=== PATIENT | male | born 1985 | race Caucasian/White ===

== ENCOUNTER 2018-10-09 19:17 | Emergency (ER) | payer SELFPAY ==
[2018-10-09] MEDS ORDERED: ONDANSETRON 4 MG/2 ML VIAL ONE (20:21)
[2018-10-09 20:37] LABS: Absolute Lymphocytes (CBC) 0.9 K/uL (0.7-4.9); Absolute Monocytes 1.1 K/uL (0.1-1.3); Absolute Neutrophil 15.1 K/uL (1.8-8.0); Basophils % 0.1 % (0-1.3); Eosinophils % 0.8 % (0-4.4); Hematocrit 52.4 % (39.6-49.0); Lymphocytes % 5.1 % (15.3-44.8); MPV 9.5 fL (7.6-11.3); Monocytes % 6.2 % (3.3-12.3); RBC Red Blood Cell Count 5.68 M/uL (4.33-5.43)
[2018-10-09 20:51] LABS: Albumin 4.3 g/dL (3.4-5.0); Bilirubin Direct 0.1 mg/dL (0-0.2); Bilirubin Total 0.6 mg/dL (0.2-1.0); Potassium 4.8 mmol/L (3.5-5.1); Protein, Total 8.5 g/dL (6.4-8.2)
[2018-10-09] MEDS ORDERED: NA CHLORIDE 0.9% 1,000 ML ONE (20:56)
[2018-10-09 21:16] LABS: Platelet Estimate ADEQ; Platelets, Giant FEW; Urine White Blood Cell Casts OK
[2018-10-09 21:17] LABS: Blood Morphology Comment NOT SEEN (NOT SEEN)
[2018-10-09 21:25] LABS: Urine Blood NEGATIVE (NEG); Urine Glucose NEGATIVE (NEG); Urine Protein 1+ (NEG); Urine Specific Gravity >1.030 (1.005-1.030)
--- NOTE | 2018-10-09 21:30 | ER ---
Nurse's Notes [facility] Name: Santo Shoemaker Age: 33 yrs Sex: Male : 1985 Arrival Date: 10/09/2018 Time: 19:20 Bed 30 Private MD: Diagnosis: Acute gastroenteropathy due to other small round viruses;Dehydration Presentation: 10/09 19:35 Presenting complaint: Patient states: "I'm having a hard time breathing, when it first aj1 started I was having stomach pains. I had bubble gut, it went from diarrhea to vomiting" Patient reports that his symptoms started this morning. Transition of care: patient was not received from another setting of care. Onset of symptoms was October 09, 2018. Risk Assessment: Do you want to hurt yourself or someone else? Patient reports no desire to harm self or others. Initial Sepsis Screen: Does the patient meet any 2 criteria? No. Patient's initial sepsis screen is negative. Does the patient have a suspected source of infection? Yes: Acute abdominal pain. Care prior to arrival: None. 19:35 Method Of Arrival: Wheelchair aj1 19:35 Acuity: LANDON 3 aj1 Triage Assessment: 19:39 General: Appears in no apparent distress. uncomfortable, Behavior is calm, cooperative, aj1 appropriate for age. Pain: Complains of pain in left lower quadrant Pain currently is 7 out of 10 on a pain scale. Neuro: Level of Consciousness is awake, alert, obeys commands. Cardiovascular: Patient's skin is warm and dry. Respiratory: Airway is patent Respiratory effort is even, unlabored, Respiratory pattern is regular, symmetrical. GI: Reports diarrhea, nausea, vomiting. Historical: - Allergies: 19:39 Amoxicillin; aj1 19:39 Ceclor; aj1 - Home Meds: 19:39 None [Active]; aj1 - PMHx: 19:39 None; aj1 - PSHx: 19:39 None; aj1 - Immunization history:: Flu vaccine is not up to date. - Social history:: Smoking status: Patient/guardian denies using tobacco. - Ebola Screening: : Patient denies travel to an Ebola-affected area in the 21 days before illness onset. Screenin:14 Abuse screen: Denies threats or abuse. Denies injuries from another. Nutritional mg2 screening: No deficits noted. Tuberculosis screening: No symptoms or risk factors identified. Fall Risk IV access (20 points). Assessment: 20:04 General: Appears in no apparent distress. comfortable, Behavior is calm, cooperative. mg2 Pain: Complains of pain in abdomen and left lower quadrant Pain does not radiate. Pain currently is 8 out of 10 on a pain scale. Quality of pain is described as aching, Pain began gradually, 1 day ago. Is intermittent. Neuro: Level of Consciousness is awake, alert, obeys commands, Oriented to person, place, time, situation. Cardiovascular: Capillary refill < 3 seconds Patient's skin is warm and dry. Respiratory: Airway is patent Respiratory effort is even, unlabored, Respiratory pattern is regular, symmetrical. GI: Abdomen is flat, non-distended, Reports lower abdominal pain, diarrhea, vomiting. : Urine is clear. EENT: No deficits noted. Derm: Skin is intact, is healthy with good turgor, Skin is pink, warm \\T\\ dry. normal. Musculoskeletal: No signs and/or symptoms reported regarding the musculoskeletal system. 20:56 Reassessment: Patient appears in no apparent distress at this time. mg2 Vital Signs: 19:39 BP 96 / 64; Pulse 85; Resp 18; Temp 97.5; Pulse Ox 100% on R/A; Weight 90.72 kg (R); aj1 Height 5 ft. 11 in. (180.34 cm) (R); 20:57 BP 114 / 71; Pulse 88; Resp 18; Temp 98.1; Pulse Ox 100% on R/A; Pain 3/10; mg2 21:45 BP 115 / 74; Pulse 80; Resp 18; Pulse Ox 100% on R/A; Pain 0/10; mg2 19:39 Body Mass Index 27.89 (90.72 kg, 180.34 cm) aj1 ED Course: 19:20 Patient arrived in ED. es 19:38 Triage completed. aj1 19:39 Arm band placed on Patient placed in an exam room. aj1 19:50 Dontae Toussaint, IRENE is Primary Nurse. mg2 19:55 Osvaldo Porras MD is Attending Physician. tw4 20:14 Patient has correct armband on for positive identification. Pulse ox on. NIBP on. Door mg2 closed. Warm blanket given. 20:14 No provider procedures requiring assistance completed. Inserted saline lock: 20 gauge mg2 in right antecubital area, using aseptic technique. Blood collected. 21:46 IV discontinued, intact, bleeding controlled, No redness/swelling at site. Pressure mg2 dressing applied. Administered Medications: 20:15 Drug: Zofran 4 mg Route: IVP; Site: right antecubital; mg2 20:56 Follow up: Response: No adverse reaction; Marked relief of symptoms mg2 20:57 Drug: NS 0.9% 1000 ml Route: IV; Rate: 1000 ml; Site: right antecubital; mg2 21:45 Follow up: Response: No adverse reaction; IV Status: Completed infusion mg2 Outcome: 21:28 Discharge ordered by MD. reddy 21:46 Discharged to home ambulatory, with family. mg2 21:46 Condition: stable 21:46 Discharge instructions given to patient, family, Instructed on discharge instructions, follow up and referral plans. medication usage, Demonstrated understanding of instructions, follow-up care, medications, Prescriptions given X 2. 21:46 Patient left the ED. mg2 Signatures: Kelli Mccormick RN RN aj1 Pooja Cortez Terrence, MD MD tw4 Dontae Toussaint RN RN mg2
--- NOTE | 2018-10-09 21:30 | EDPHYS ---
Physician Documentation [facility] Name: Santo Shoemaker Age: 33 yrs Sex: Male : 1985 Arrival Date: 10/09/2018 Time: 19:20 Bed 30 Private MD: ED Physician Osvaldo Porras HPI: 10/10 02:50 This 33 yrs old Male presents to ER via Wheelchair with complaints of tw4 Vomiting/Diarrhea, Dizziness, BODY ACHE. 02:50 The patient presents to the emergency department with nausea, vomiting. Onset: The tw4 symptoms/episode began/occurred today. Possible causes: unknown. The symptoms are aggravated by nothing. The symptoms are alleviated by nothing. Associated signs and symptoms: Pertinent positives: diarrhea. Severity of symptoms: At their worst the symptoms were moderate in the emergency department the symptoms are unchanged. The patient has not experienced similar symptoms in the past. Historical: - Allergies: 10/09 19:39 Amoxicillin; aj1 19:39 Ceclor; aj1 - Home Meds: 19:39 None [Active]; aj1 - PMHx: 19:39 None; aj1 - PSHx: 19:39 None; aj1 - Immunization history:: Flu vaccine is not up to date. - Social history:: Smoking status: Patient/guardian denies using tobacco. - Ebola Screening: : Patient denies travel to an Ebola-affected area in the 21 days before illness onset. ROS: 10/10 02:50 Constitutional: Negative for fever, chills, and weight loss, Eyes: Negative for injury, tw4 pain, redness, and discharge, Cardiovascular: Negative for chest pain, palpitations, and edema, Respiratory: Negative for shortness of breath, cough, wheezing, and pleuritic chest pain. Abdomen/GI: Positive for nausea and vomiting, nausea, vomiting, and diarrhea, nausea, vomiting, diarrhea, Negative for constipation, abdominal cramps, abdominal distension, anorexia, dysphagia, hematemesis. Exam: 02:50 Constitutional: This is a well developed, well nourished patient who is awake, alert, tw4 and in no acute distress. Head/Face: Normocephalic, atraumatic. Chest/axilla: Normal chest wall appearance and motion. Nontender with no deformity. No lesions are appreciated. Cardiovascular: Regular rate and rhythm with a normal S1 and S2. No gallops, murmurs, or rubs. Normal PMI, no JVD. No pulse deficits. Respiratory: Lungs have equal breath sounds bilaterally, clear to auscultation and percussion. No rales, rhonchi or wheezes noted. No increased work of breathing, no retractions or nasal flaring. Abdomen/GI: Soft, non-tender, with normal bowel sounds. No distension or tympany. No guarding or rebound. No evidence of tenderness throughout. Back: No spinal tenderness. No costovertebral tenderness. Full range of motion. MS/ Extremity: Pulses equal, no cyanosis. Neurovascular intact. Full, normal range of motion. Neuro: Awake and alert, GCS 15, oriented to person, place, time, and situation. Cranial nerves II-XII grossly intact. Motor strength 5/5 in all extremities. Sensory grossly intact. Cerebellar exam normal. Normal gait. Vital Signs: 10/09 19:39 BP 96 / 64; Pulse 85; Resp 18; Temp 97.5; Pulse Ox 100% on R/A; Weight 90.72 kg (R); aj1 Height 5 ft. 11 in. (180.34 cm) (R); 20:57 BP 114 / 71; Pulse 88; Resp 18; Temp 98.1; Pulse Ox 100% on R/A; Pain 3/10; mg2 21:45 BP 115 / 74; Pulse 80; Resp 18; Pulse Ox 100% on R/A; Pain 0/10; mg2 19:39 Body Mass Index 27.89 (90.72 kg, 180.34 cm) [facility] MDM: 19:55 Patient medically screened. 4 10/10 02:50 Data reviewed: vital signs, nurses notes. Counseling: I had a detailed discussion with [facility] the patient and/or guardian regarding: the historical points, exam findings, and any diagnostic results supporting the discharge/admit diagnosis. Medication response: Zofran relieved the patient's nausea. Response to treatment: the patient's symptoms have markedly improved after treatment, and as a result, I will discharge patient. 10/09 20:02 Order name: Basic Metabolic Panel; Complete Time: 21:22 tw4 10/09 21:22 Interpretation: Normal except: GLUC 117; BUN 23; GFR 68. [facility] 10/09 20:02 Order name: CBC with Diff; Complete Time: 21:22 tw4 10/09 21:22 Interpretation: Normal except: WBC 17.2; RBC 5.68; HCT 52.4; KALYANI% 87.8; LYM% 5.1; NEUT tw4 A 15.1. 10/09 20:02 Order name: Creatinine for Radiology tw4 10/09 20:02 Order name: Hepatic Function; Complete Time: 21:25 tw4 10/09 21:25 Interpretation: AST 55; ALT 108; GLOB 4.2; TP 8.5; A/G 1.0. tw4 10/09 20:02 Order name: Lipase; Complete Time: 21:26 tw4 10/09 20:52 Order name: CBC Smear Scan EDMS 10/09 20:02 Order name: IV Saline Lock; Complete Time: 20:03 tw4 10/09 21:22 Interpretation: Abnormal. tw4 10/09 20:02 Order name: Labs collected and sent; Complete Time: 20:04 tw4 10/09 21:09 Order name: Urine Dipstick--Ancillary (enter results) ar5 Administered Medications: 10/09 20:15 Drug: Zofran 4 mg Route: IVP; Site: right antecubital; mg2 20:56 Follow up: Response: No adverse reaction; Marked relief of symptoms mg2 20:57 Drug: NS 0.9% 1000 ml Route: IV; Rate: 1000 ml; Site: right antecubital; mg2 21:45 Follow up: Response: No adverse reaction; IV Status: Completed infusion mg2 Disposition: 10/09/18 21:28 Discharged to Home. Impression: Acute gastroenteropathy due to other small round viruses, Dehydration. - Condition is Stable. - Discharge Instructions: Food Choices to Help Relieve Diarrhea, Adult, Dehydration, Adult, Viral Gastroenteritis, Adult, Norovirus Infection. - Prescriptions for Zofran 4 mg Oral Tablet - take 1 tablet by ORAL route every 12 hours As needed; 6 tablet. Lomotil 2.5- 0.025 mg Oral Tablet - take 2 tablet by ORAL route once daily As needed; 20 tablet. - Medication Reconciliation Form, Thank You Letter, Antibiotic Education, Prescription Opioid Use form. - Follow up: Private Physician; When: Upon discharge from the Emergency Department; Reason: If symptoms return, Recheck today's complaints, Continuance of care. - Problem is new. - Symptoms have improved. Signatures: Dispatcher [employer] Kelli Wright RN RN aj1 Osvaldo Porras MD MD tw4 Dontae Toussaint RN RN mg2 Corrections: (The following items were deleted from the chart) 21:22 21:22 WBC 17.2; RBC 5.68; HCT 52.4; KALYANI% 87.8; LYM% 5.1; NEUT A 15.1. tw4 tw4 21:46 21:28 10/09/2018 21:28 Discharged to Home. Impression: Acute gastroenteropathy due to mg2 other small round viruses; Dehydration. Condition is Stable. Forms are Medication Reconciliation Form, Thank You Letter, Antibiotic Education, Prescription Opioid Use. Follow up: Private Physician; When: Upon discharge from the Emergency Department; Reason: If symptoms return, Recheck today's complaints, Continuance of care. Problem is new. Symptoms have improved. tw4
== END 2018-10-09 21:46 | disposition home or self-care (01) ==
LOC: ER 19:17
DX: A08.19 Acute gastroenteropathy due to other small round viruses (principal); E86.0 Dehydration
CPT/HCPCS: 36415; 80048; 80076; 81003; 83690; 85025; 96361; 96374; 99284; J2405; J7030

== ENCOUNTER 2019-03-04 08:28 | Emergency (ER) | payer SELFPAY ==
--- NOTE | 2019-03-04 08:49 | ER ---
Nurse's Notes [facility] Name: Santo Shoemaker Age: 33 yrs Sex: Male : 1985 Arrival Date: 03/04/2019 Time: 08:31 Bed 6 Private MD: None, None Diagnosis: Sciatica, right side;Muscle spasm of back Presentation: 03/04 08:38 Presenting complaint: Patient states: low back pain that radiates up R side of back and ss down R leg. Denies injury. 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 Transition of care: patient was not received from another setting of care. Onset of symptoms was March 03, 2019. Risk Assessment: Do you want to hurt yourself or someone else? Patient reports no desire to harm self or others. Initial Sepsis Screen: Does the patient meet any 2 criteria? No. Patient's initial sepsis screen is negative. Does the patient have a suspected source of infection? No. Patient's initial sepsis screen is negative. Care prior to arrival: None. 08:38 Method Of Arrival: Ambulatory 08:38 Acuity: LANDON 4 ss Historical: - Allergies: 08:42 Amoxicillin; ss 08:42 Ceclor; ss 08:42 PENICILLINS; ss - Home Meds: 08:42 None [Active]; ss - PMHx: 08:42 None; ss - PSHx: 08:42 None; ss - Immunization history:: Adult Immunizations up to date. - Social history:: Smoking status: Patient uses tobacco products, 4-5 cigarettes/ day. - Ebola Screening: : Patient denies exposure to infectious person Patient denies travel to an Ebola-affected area in the 21 days before illness onset. Screenin:09 Abuse screen: Denies threats or abuse. Denies injuries from another. Nutritional ph screening: No deficits noted. Tuberculosis screening: No symptoms or risk factors identified. Fall Risk None identified. Assessment: 09:07 General: Appears in no apparent distress. comfortable, well groomed, Behavior is calm, ph cooperative, appropriate for age. Pain: Complains of pain in lumbar area and right low back Pain radiates to right leg. Neuro: Level of Consciousness is awake, alert, obeys commands, Oriented to person, place, time, situation. Cardiovascular: Capillary refill < 3 seconds in bilateral fingers Patient's skin is warm and dry. Respiratory: Airway is patent Respiratory effort is even, unlabored. Derm: Skin is intact, is healthy with good turgor, Skin is pink, warm \T\ dry. Musculoskeletal: Circulation, motion, and sensation intact. Range of motion: intact in all extremities. 09:09 Reassessment: Patient appears in no apparent distress at this time. Awaiting 15 min ph shot time prior to d/c. Vital Signs: 08:42 BP 133 / 91; Pulse 77; Resp 15; Pulse Ox 99% on R/A; Weight 86.18 kg; Height 5 ft. 11 ss in. (180.34 cm); Pain 9/10; 09:23 BP 127 / 89; Pulse 71; Resp 16; Temp 97.9; Pulse Ox 99% on R/A; Pain 6/10; ph 08:42 Body Mass Index 26.50 (86.18 kg, 180.34 cm) ED Course: 08:31 Patient arrived in ED. dl4 08:32 None, None is Private Physician. dl4 08:34 Shira Astorga FNP-C is [facility]. kb 08:34 Maximo Babin MD is Attending Physician. kb 08:41 Triage completed. ss 08:42 Arm band placed on right wrist. ss 08:54 Kerrie Flynn, RN is Primary Nurse. ph 09:08 Patient has correct armband on for positive identification. Bed in low position. Call ph light in reach. Side rails up X 1. Door closed. Noise minimized. 09:09 No provider procedures requiring assistance completed. Patient did not have IV access ph during this emergency room visit. Administered Medications: 09:05 Drug: Flexeril 10 mg Route: PO; ph 09:23 Follow up: Response: No adverse reaction; Pain is decreased ph 09:06 Drug: TORadol 60 mg Route: IM; Site: right ventrogluteal; ph 09:23 Follow up: Response: No adverse reaction; Pain is decreased ph Outcome: 08:49 Discharge ordered by . kb 09:23 Discharged to home ambulatory. ph 09:23 Condition: good 09:23 Discharge instructions given to patient, Instructed on discharge instructions, follow up and referral plans. medication usage, Demonstrated understanding of instructions, follow-up care, medications, Prescriptions given X 2. 09:24 Patient left the ED. ph Signatures: Shira Astorga FNP-C SERVICE ENGINE REPAIRER-Ckb Chiqui Lainez, RN RN ss Kerrie Flynn RN RN Kb Renteria dl4
--- NOTE | 2019-03-04 08:49 | EDPHYS ---
Physician Documentation [facility] Name: Santo Shoemaker Age: 33 yrs Sex: Male : 1985 Arrival Date: 03/04/2019 Time: 08:31 Bed 6 Private MD: None, None ED Physician Maximo Babin HPI: 03/04 09:26 This 33 yrs old Male presents to ER via Ambulatory with complaints of Back kb Injury. 09:26 The patient presents with pain that is acute. The symptoms are located in the right mid kb back and right low back. Onset: The symptoms/episode began/occurred yesterday. The pain radiates to the left leg. Associated signs and symptoms: Pertinent positives: none. Modifying factors: The patient symptoms are alleviated by. The patient has not experienced similar symptoms in the past. The patient has not recently seen a physician. 09:53 The problem was sustained when lifting from twisting. Severity of symptoms: At their kb worst the symptoms were moderate, in the emergency department the symptoms are unchanged. Pt reports mid back pain to right of spine and lower right back/right buttock pain that radiates down right leg. Symptoms started yesterday while working. 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 Historical: - Allergies: 08:42 Amoxicillin; ss 08:42 Ceclor; ss 08:42 PENICILLINS; ss - Home Meds: 08:42 None [Active]; ss - PMHx: 08:42 None; ss - PSHx: 08:42 None; ss - Immunization history:: Adult Immunizations up to date. - Social history:: Smoking status: Patient uses tobacco products, 4-5 cigarettes/ day. - Ebola Screening: : Patient denies exposure to infectious person Patient denies travel to an Ebola-affected area in the 21 days before illness onset. ROS: 09:23 Constitutional: Negative for fever, chills, and weight loss, Cardiovascular: Negative kb for chest pain, palpitations, and edema, Respiratory: Negative for shortness of breath, cough, wheezing, and pleuritic chest pain, Abdomen/GI: Negative for abdominal pain, nausea, vomiting, diarrhea, and constipation, : Negative for injury, bleeding, discharge, and swelling, MS/Extremity: Negative for injury and deformity, Skin: Negative for injury, rash, and discoloration, Neuro: Negative for headache, weakness, numbness, tingling, and seizure. 09:23 Back: Positive for pain at rest, pain with movement, radiated pain, of the right mid back and right low back. Exam: 09:23 Constitutional: This is a well developed, well nourished patient who is awake, alert, kb and in no acute distress. Head/Face: Normocephalic, atraumatic. Chest/axilla: Normal chest wall appearance and motion. Nontender with no deformity. No lesions are appreciated. Cardiovascular: Regular rate and rhythm with a normal S1 and S2. No gallops, murmurs, or rubs. Normal PMI, no JVD. No pulse deficits. Respiratory: Lungs have equal breath sounds bilaterally, clear to auscultation and percussion. No rales, rhonchi or wheezes noted. No increased work of breathing, no retractions or nasal flaring. Abdomen/GI: Soft, non-tender, with normal bowel sounds. No distension or tympany. No guarding or rebound. No evidence of tenderness throughout. Skin: Warm, dry with normal turgor. Normal color with no rashes, no lesions, and no evidence of cellulitis. MS/ Extremity: Pulses equal, no cyanosis. Neurovascular intact. Full, normal range of motion. Neuro: Awake and alert, GCS 15, oriented to person, place, time, and situation. Cranial nerves II-XII grossly intact. Motor strength 5/5 in all extremities. Sensory grossly intact. Cerebellar exam normal. Normal gait. 09:23 Back: pain, that is moderate, of the right mid back, ROM is painful, with all movement, normal spinal alignment noted, CVA tenderness, is absent. Vital Signs: 08:42 BP 133 / 91; Pulse 77; Resp 15; Pulse Ox 99% on R/A; Weight 86.18 kg; Height 5 ft. 11 ss in. (180.34 cm); Pain 9/10; 09:23 BP 127 / 89; Pulse 71; Resp 16; Temp 97.9; Pulse Ox 99% on R/A; Pain 6/10; ph 08:42 Body Mass Index 26.50 (86.18 kg, 180.34 cm) ss MDM: 08:34 Patient medically screened. kb 08:48 Data reviewed: vital signs, nurses notes. Data interpreted: Pulse oximetry: on room air kb is 99 %. Interpretation: normal. Counseling: I had a detailed discussion with the patient and/or guardian regarding: the historical points, exam findings, and any diagnostic results supporting the discharge/admit diagnosis, the need for outpatient follow up, a family practitioner, to return to the emergency department if symptoms worsen or persist or if there are any questions or concerns that arise at home. Administered Medications: 09:05 Drug: Flexeril 10 mg Route: PO; ph 09:23 Follow up: Response: No adverse reaction; Pain is decreased ph 09:06 Drug: TORadol 60 mg Route: IM; Site: right ventrogluteal; ph 09:23 Follow up: Response: No adverse reaction; Pain is decreased ph Disposition: 16:04 Co-signature as Attending Physician, Maximo Babin MD. rn Disposition: 03/04/19 08:49 Discharged to Home. Impression: Sciatica, right side, Muscle spasm of back. - Condition is Stable. - Discharge Instructions: Back Pain, Adult, [id number], Muscle Cramps and Spasms, [id number], Sciatica, [id number], Back Exercises, [id number]. - Prescriptions for Ibuprofen 800 mg Oral Tablet - take 1 tablet by ORAL route every 8 hours As needed take with food; 30 tablet. Cyclobenzaprine 10 mg Oral Tablet - take 1 tablet by ORAL route every 8 hours As needed; 21 tablet. - Medication Reconciliation Form, Thank You Letter, Antibiotic Education, Prescription Opioid Use form. - Follow up: Emergency Department; When: As needed; Reason: Worsening of condition. Follow up: Private Physician; When: 2 - 3 days; Reason: Recheck today's complaints, Continuance of care, Re-evaluation by your physician. Signatures: Shira Astorga, PEDIATRIC ASSOCIATE-C PEDIATRIC ASSOCIATE-Rovertob Maximo Babin MD MD rn Smirch, Shelby, RN RN ss Hall, Patricia, RN RN ph Corrections: (The following items were deleted from the chart) 09:24 08:49 03/04/2019 08:49 Discharged to Home. Impression: Sciatica, right side; Muscle ph spasm of back. Condition is Stable. Forms are Medication Reconciliation Form, Thank You Letter, Antibiotic Education, Prescription Opioid Use. Follow up: Emergency Department; When: As needed; Reason: Worsening of condition. Follow up: Private Physician; When: 2 - 3 days; Reason: Recheck today's complaints, Continuance of care, Re-evaluation by your physician. kb 09:26 09:23 Back: pain, that is moderate, of the right mid back, ROM is painful, with all kb movement, normal spinal alignment noted, kb
[2019-03-04] MEDS ORDERED: KETOROLAC 30 MG/ML INJ ONE (09:13)
[2019-03-04] MEDS ORDERED: CYCLOBENZAPRINE 10 MG TAB ONE (09:13)
== END 2019-03-04 09:24 | disposition home or self-care (01) ==
LOC: ER 08:28
DX: M54.31 Sciatica, right side (principal); M62.830 Muscle spasm of back; F17.210 Nicotine dependence, cigarettes, uncomplicated; Z88.0 Allergy status to penicillin; Z88.1 Allergy status to other antibiotic agents
CPT/HCPCS: 96372; 99283

== ENCOUNTER 2022-06-07 08:40 | Emergency (ER) | payer SELFPAY ==
--- NOTE | 2022-06-07 10:04 | RAD REPORT ---
EXAM DESCRIPTION: US - Extremity Venous Uni Ltd - 06/07/2022 9:43 am CLINICAL HISTORY: tenderness COMPARISON: None. TECHNIQUE: Real-time sonographic evaluation of the right lower extremity deep venous systems was per formed. FINDINGS: Normal compressibility, flow augmentation, phasic flow and spontaneous flow are identified in the right lower extremity common femoral, superficial femoral, popliteal and posterior tibial vei ns. No intraluminal filling defects seen. IMPRESSION: No DVT in the right lower extremity.
--- NOTE | 2022-06-07 10:05 | RAD REPORT ---
EXAM DESCRIPTION: RAD - Elbow Right 3 View - 06/07/2022 9:52 am CLINICAL HISTORY: PAINand numbness, no trauma history detailed COMPARISON: No comparisonsNone. FINDINGS: No fracture is identified and no elevated posterior fat pad. There is no dislocation or pe riosteal reaction noted. No foreign body or other soft tissue abnormality. No other significant findi ng. IMPRESSION: Negative right elbow examination.
--- NOTE | 2022-06-07 10:19 | ER ---
Nurse's Notes [facility] Name: Santo Shoemaker Age: 37 yrs Sex: Male : 1985 Arrival Date: 06/07/2022 Time: 08:50 Bed 10 Private MD: Diagnosis: Lateral epicondylitis, right elbow;Pain in right lower leg Presentation: 06/07 09:02 Chief complaint: Patient states: when woke up this morning had pain in my right elbow iw and shocking pain down to my fingertips and I'm having pain behind my right leg also , and has numbness to right 2nd and 3rd digit. Coronavirus screen: At this time, the client does not indicate any symptoms associated with coronavirus-19. Coronavirus screen:. Ebola Screen: Patient negative for fever greater than or equal to 101.5 degrees Fahrenheit, and additional compatible Ebola Virus Disease symptoms Patient denies exposure to infectious person. Patient denies travel to an Ebola-affected area in the 21 days before illness onset. No symptoms or risks identified at this time. Initial Sepsis Screen: Does the patient meet any 2 criteria? No. Patient's initial sepsis screen is negative. Does the patient have a suspected source of infection? No. Patient's initial sepsis screen is negative. Risk Assessment: Do you want to hurt yourself or someone else? Patient reports no desire to harm self or others. Onset of symptoms was June 07, 2022. 09:02 Method Of Arrival: Ambulatory iw 09:02 Acuity: LANDON 3 iw Historical: - Allergies: 09:04 Amoxicillin; iw 09:04 Ceclor; iw 09:04 PENICILLINS; iw - Home Meds: 09:04 oxcarbazepine oral [Active]; iw - PMHx: 09:04 None; iw - Social history:: Smoking status: . Screenin:55 Abuse screen: Denies threats or abuse. Denies injuries from another. Nutritional iw screening: No deficits noted. Tuberculosis screening: No symptoms or risk factors identified. Fall Risk None identified. Assessment: 09:07 General: Appears in no apparent distress. Behavior is calm, cooperative. Pain: iw Complains of pain in right arm. Neuro: Level of Consciousness is awake, alert, obeys commands, Oriented to person, place, time, situation, Moves all extremities. Full function. Respiratory: Airway is patent. GI: Vital Signs: 09:02 BP 118 / 81; Pulse 71; Resp 16; Temp 98.0; Pulse Ox 100% on R/A; Weight 81.65 kg; iw Height 5 ft. 11 in. (180.34 cm); 09:02 Body Mass Index 25.11 (81.65 kg, 180.34 cm) iw ED Course: 08:50 Patient arrived in ED. am2 09:04 Alexandru Esteves PA is PHCP. cp 09:04 Mikael Meza DO is Attending Physician. cp 09:04 Triage completed. iw 09:05 Arm band placed on. iw 09:07 Gisel Mcdaniel RN is Primary Nurse. iw 09:08 No provider procedures requiring assistance completed. iw 09:45 US Extremity Venous Unilateral Ltd In Process Unspecified. EDMS 09:54 XRAY Elbow RIGHT 3 view In Process Unspecified. EDMS 10:18 Joey Mederos MD is Referral Physician. cp 10:55 Patient has correct armband on for positive identification. iw 10:55 Patient did not have IV access during this emergency room visit. iw Administered Medications: No medications were administered Medication: 10:00 VIS not applicable for this client. iw Outcome: 10:19 Discharge ordered by MD. cp 10:56 Discharged to home ambulatory. iw 10:56 Condition: good 10:56 Discharge instructions given to patient, Instructed on discharge instructions, follow up and referral plans. Demonstrated understanding of instructions, follow-up care. 10:56 Prescriptions given X 1. iw 10:57 Patient left the ED. iw Signatures: Dispatcher [employer] EDGisel Gaston RN RN iw Alexandru Esteves PA PA cp Moreno, Amanda am2 Corrections: (The following items were deleted from the chart) 09:06 09:02 Pulse 71bpm; Resp 16bpm; Pulse Ox 100% RA; Temp 98.0F; 81.65 kg; Height 5 ft. 11 iw in.; BMI: 25.1; iw
--- NOTE | 2022-06-07 10:20 | EDPHYS ---
Physician Documentation [facility] Name: Santo Shoemaker Age: 37 yrs Sex: Male : 1985 Arrival Date: 06/07/2022 Time: 08:50 Bed 10 Private MD: ED Physician Mikael Meza HPI: 06/07 09:30 This 37 yrs old Male presents to ER via Ambulatory with complaints of Numbness Of Arm, cp Leg Pain - numbness. 09:30 The patient or guardian complains of pain, that is acute. The complaints affect the cp lateral aspect right elbow. Context: started upon awakening this morning, noticed numbness of right forearm and right hand. Patient denies injury. Also c/o pain and swelling to right calf for awhile. Historical: - Allergies: 09:04 Amoxicillin; iw 09:04 Ceclor; iw 09:04 PENICILLINS; iw - Home Meds: 09:04 oxcarbazepine oral [Active]; iw - PMHx: 09:04 None; iw - Social history:: Smoking status: . ROS: 09:35 MS/extremity: Positive for pain, of the right elbow and right calf. cp 09:35 Neck: Negative for pain with movement, pain at rest, stiffness. cp 09:35 Neuro: Positive for numbness, of the right index and right middle fingers, Negative for headache, weakness. Exam: 09:40 Constitutional: The patient appears in no acute distress, alert, awake, cp non-diaphoretic, non-toxic, well developed, well nourished. 09:40 Head/Face: Normocephalic, atraumatic. cp 09:40 Eyes: Periorbital structures: appear normal, Conjunctiva: normal, no exudate, no injection, Sclera: no appreciated abnormality, Lids and lashes: appear normal, bilaterally. 09:40 ENT: External ear(s): are unremarkable, Nose: is normal, Mouth: Lips: moist, Oral mucosa: pink and intact, moist, Posterior pharynx: Airway: no evidence of obstruction, patent. 09:40 Neck: C-spine: vertebral tenderness, is not appreciated, crepitus, is not appreciated, ROM/movement: is normal, is supple, without pain, no range of motions limitations. 09:40 Chest/axilla: Inspection: normal. 09:40 Cardiovascular: Rate: normal, Rhythm: regular, Pulses: Pulses are 2+ in right radial artery. JVD: is not appreciated. 09:40 Respiratory: the patient does not display signs of respiratory distress, Respirations: normal, no use of accessory muscles, no retractions, labored breathing, is not present, Breath sounds: are clear throughout, no decreased breath sounds, no stridor, no wheezing. 09:40 Abdomen/GI: Exam negative for discomfort, distension, guarding, Inspection: abdomen appears normal. 09:40 Back: pain, is absent, ROM is normal. 09:40 Musculoskeletal/extremity: Extremities: grossly normal except: noted in the right elbow: tenderness lateral epicondyle, overlying skin warm/dry with no erythema, mild paresthesias noted right second and third fingers, noted in the right calf: tenderness, no evidence of deformity, erythema, swelling, ROM: full active range of motion, in the right elbow and right knee and right ankle. Vital Signs: 09:02 BP 118 / 81; Pulse 71; Resp 16; Temp 98.0; Pulse Ox 100% on R/A; Weight 81.65 kg; iw Height 5 ft. 11 in. (180.34 cm); 09:02 Body Mass Index 25.11 (81.65 kg, 180.34 cm) iw MDM: 09:10 Patient medically screened. cp 10:00 Differential diagnosis: dislocation, closed fracture, tendonitis, DVT. cp 10:19 Data reviewed: vital signs, nurses notes, radiologic studies, plain films, ultrasound. cp 10:19 Test interpretation: by ED physician or midlevel provider: plain radiologic studies. cp Counseling: I had a detailed discussion with the patient and/or guardian regarding: the historical points, exam findings, and any diagnostic results supporting the discharge/admit diagnosis, radiology results, the need for outpatient follow up, a orthopedic surgeon, to return to the emergency department if symptoms worsen or persist or if there are any questions or concerns that arise at home. 06/07 09: Order name: XRAY Elbow RIGHT 3 view; Complete Time: 10:07 cp 06/07 10:07 Interpretation: Report reviewed. cp 06/07 09: Order name: US Extremity Venous Unilateral Ltd; Complete Time: 10:07 cp Administered Medications: No medications were administered Disposition: 06/08 10:47 Co-signature as Attending Physician, Mikael HERNANDEZ was immediately available on-site ms3 in the Emergency Department for consultation in the care of the patient. . Disposition Summary: 06/07/22 10:19 Discharge Ordered Location: Home cp Problem: new cp Symptoms: have improved cp Condition: Stable cp Diagnosis - Lateral epicondylitis, right elbow cp - Pain in right lower leg cp Followup: cp - With: Joey Mederos MD - When: 1 week - Reason: Recheck today's complaints Discharge Instructions: - Discharge Summary Sheet cp - Tennis Elbow cp - Musculoskeletal Pain cp - RICE Therapy for Routine Care of Injuries cp Forms: - Medication Reconciliation Form cp - Thank You Letter cp - Antibiotic Education cp - Prescription Opioid Use cp Prescriptions: - Diclofenac Sodium 75 mg Oral Tablet Sustained Release - take 1 tablet by ORAL route 2 times per day; 30 tablet; Refills: 0, Product cp Selection Permitted Signatures: Dispatcher [employer] Gisel Hess RN RN iw Page, Corey, PA PA cp Mikael Meza DO DO ms3 Corrections: (The following items were deleted from the chart) 10:40 06/07 09:30 Context: started upon awakening this morning, noticed numbness of right cp forearm and right hand, cp 06/08 10:49 10:00 Differential diagnosis: dislocation, closed fracture, tendonitis, DVT cp cp
[2022-06-07 11:04] VITALS: BP 118/81; TEMP 98; O2SAT 100
== END 2022-06-07 10:57 | disposition home or self-care (01) ==
LOC: ER 08:40
DX: M77.11 Lateral epicondylitis, right elbow (principal); M79.661 Pain in right lower leg; Z88.0 Allergy status to penicillin; Z88.1 Allergy status to other antibiotic agents
CPT/HCPCS: 93971; 99283